=== PATIENT | male | born 1990 | race Caucasian/White ===

== ENCOUNTER 2020-12-12 07:16 | Outpatient (CLI) | payer BC ==
[2020-12-12 07:36] LABS: BASOPHILS % (AUTO) 0.7 %; EOSINOPHILS # (AUTO) 0.4 10^3/uL (0.0-0.7); EOSINOPHILS % (AUTO) 6.7 %; HCT - HEMATOCRIT 46.9 % (42.0-52.0); HGB - HEMOGLOBIN 16.3 g/dL (14.0-18.0); LYMPHOCYTES # (AUTO) 2.5 10^3/uL (1.5-3.5); LYMPHOCYTES % (AUTO) 42.4 %; MEAN CORPUSCULAR HEMOGLOBIN 32.5 pg (27.0-31.0); MEAN CORPUSCULAR HGB CONC 34.8 g/dL (32.0-36.0); MEAN CORPUSCULAR VOLUME 93.4 fL (80.0-94.0); MEAN PLATELET VOLUME 9.8 fL (7.4-11.4); MONOCYTES # (AUTO) 0.5 10^3/uL (0.0-1.0); NEUTROPHILS # (AUTO) 2.4 10^3/uL (1.5-6.6); NEUTROPHILS % (AUTO) 40.7 %; PLT - PLATELET COUNT 207 10^3/uL (130-450); RED BLOOD COUNT 5.02 10^6/uL (4.70-6.10); RED CELL DISTRIBUTION WIDTH 11.9 % (12.0-15.0); WHITE BLOOD COUNT 5.8 x10^3/uL (4.8-10.8)
[2020-12-12 07:55] LABS: ALBUMIN 4.4 g/dL (3.2-5.5); ALBUMIN/GLOBULIN RATIO 1.6 (1.0-2.2); ALKALINE PHOSPHATASE 71 IU/L (42-121); ALT ALANINE AMINOTRANSFERASE 55 IU/L (10-60); AST ASPARTATE AMINOTRANSFERASE 34 IU/L (10-42); BILIRUBIN,TOTAL 0.6 mg/dL (0.2-1.0); BUN - BLOOD UREA NITROGEN 12 mg/dL (6-20); CALCIUM 9.3 mg/dL (8.5-10.3); CARBON DIOXIDE - CO2 26 mmol/L (21-32); CHLORIDE 102 mmol/L (101-111); CHOL/HDL RATIO 3.2 (<5.0); CHOLESTEROL 153 mg/dL; CREATININE 0.8 mg/dL (0.6-1.2); GFR - MDRD 115 (>89); GLUCOSE 108 mg/dL (70-100); HDL CHOLESTEROL 48 mg/dL; LDL CHOLESTEROL,CALCULATED 79 mg/dL; LDL/HDL RATIO 1.6 (<3.6); POTASSIUM 4.3 mmol/L (3.5-5.0); SODIUM 137 mmol/L (135-145); TOTAL PROTEIN 7.1 g/dL (6.7-8.2); TRIGLYCERIDES 129 mg/dL; VLDL CHOLESTEROL 26 mg/dL
[2020-12-13 20:19] LABS: ESTIMATED AVERAGE GLUCOSE 91 mg/dL (70-100); HEMOGLOBIN A1c% 4.8 % (4.27-6.07)
== END 2020-12-12 07:17 | disposition home or self-care (01) ==
LOC: LAB 07:16 → EDSTATUS 08:45
PROVIDERS: ATTEND Internal Medicine
DX: Z13.6 Encounter for screening for cardiovascular disorders (principal); Z79.899 Other long term (current) drug therapy; J45.909 Unspecified asthma, uncomplicated; R73.01 Impaired fasting glucose
CPT/HCPCS: 36415; 80053; 80061; 83036; 83721; 84443; 85025

== ENCOUNTER 2022-08-15 07:03 | Outpatient (CLI) | payer BC ==
[2022-08-15 07:38] LABS: ALBUMIN 4.7 g/dL (3.2-5.5); ALBUMIN/GLOBULIN RATIO 1.7 (1.0-2.2); ALKALINE PHOSPHATASE 65 IU/L (42-121); ALT ALANINE AMINOTRANSFERASE 28 IU/L (10-60); AST ASPARTATE AMINOTRANSFERASE 23 IU/L (10-42); BASOPHILS # (AUTO) 0.1 10^3/uL (0.0-0.1); BASOPHILS % (AUTO) 0.8 %; BILIRUBIN,TOTAL 0.8 mg/dL (0.2-1.0); BUN - BLOOD UREA NITROGEN 11 mg/dL (6-20); CALCIUM 9.5 mg/dL (8.5-10.3); CARBON DIOXIDE - CO2 24 mmol/L (21-32); CHOL/HDL RATIO 3.9 (<5.0); CHOLESTEROL 164 mg/dL; CREATININE 0.9 mg/dL (0.6-1.2); EOSINOPHILS # (AUTO) 0.1 10^3/uL (0.0-0.7); EOSINOPHILS % (AUTO) 2.1 %; GFR - MDRD 99 (>89); GLUCOSE 107 mg/dL (70-100); HCT - HEMATOCRIT 48.3 % (42.0-52.0); HDL CHOLESTEROL 42 mg/dL; HGB - HEMOGLOBIN 17.3 g/dL (14.0-18.0); LDL CHOLESTEROL,CALCULATED 100 mg/dL; LDL/HDL RATIO 2.4 (<3.6); LYMPHOCYTES # (AUTO) 2.7 10^3/uL (1.5-3.5); LYMPHOCYTES % (AUTO) 43.5 %; MEAN CORPUSCULAR HEMOGLOBIN 30.6 pg (27.0-31.0); MEAN CORPUSCULAR HGB CONC 35.8 g/dL (32.0-36.0); MEAN CORPUSCULAR VOLUME 85.5 fL (80.0-94.0); MEAN PLATELET VOLUME 10.6 fL (7.4-11.4); MONOCYTES # (AUTO) 0.6 10^3/uL (0.0-1.0); MONOCYTES % (AUTO) 10.1 %; NEUTROPHILS # (AUTO) 2.7 10^3/uL (1.5-6.6); NEUTROPHILS % (AUTO) 43.3 %; PLT - PLATELET COUNT 267 10^3/uL (130-450); POTASSIUM 4.2 mmol/L (3.5-5.0); RED BLOOD COUNT 5.65 10^6/uL (4.70-6.10); RED CELL DISTRIBUTION WIDTH 12.1 % (12.0-15.0); SODIUM 138 mmol/L (135-145); TOTAL PROTEIN 7.5 g/dL (6.7-8.2); TRIGLYCERIDES 110 mg/dL; VLDL CHOLESTEROL 22 mg/dL; WHITE BLOOD COUNT 6.2 x10^3/uL (4.8-10.8)
[2022-08-15 07:49] LABS: THYROID STIMULATING HORMONE 3.95 uIU/mL (0.34-5.60)
[2022-08-15 13:41] LABS: CHLORIDE 106 mmol/L (101-111)
== END 2022-08-15 07:04 | disposition home or self-care (01) ==
LOC: LAB 07:03
PROVIDERS: ATTEND Physician Assistant
DX: R03.0 Elevated blood-pressure reading, without diagnosis of hypertension (principal)
CPT/HCPCS: 36415; 80053; 80061; 83721; 84443; 85025

== ENCOUNTER 2023-09-01 07:46 | Outpatient (CLI) | payer BC ==
--- NOTE | 2023-09-01 08:15 | CARDIAC PROCEDURE NOTE ---
Stress Test Report Service Date: 09/01/23 Service Time: 08:00 Ordering Provider: Cindi Suresh ARNP Indication for Test: Cardiac risk stratification in patient with recently diagnosed hypertension and concern for palpitations. Significant Medical History: Rajiv is referred for a treadmill stress echocardiogram today, for general cardiac risk stratification in the setting of recent diagnosis of hypertension. His blood pressures have been elevated over the past several months, in spite of lifestyle modifications including loss of approximately 30-40 pounds, decreased alcohol intake and regular walking. He has several family members who began treatment for hypertension in their 30s, some requiring multiple medications. At a clinic visit in early June, where BP was documented at 141/105, he was started on amlodipine 5 mg daily, with some subsequent reduction of blood pressures, though he is often still seeing values in the 140s over high 80s to low 90s. He also is experiencing palpitations, that he describes as forceful heart contractions without lightheadedness, notable especially in the evening. In spite of these concerns he remains active, walking on a regular basis without concern for loss of exertional tolerance, and without chest discomfort or particular awareness of his heartbeat at the time of exercise. Cardiac Risk Factors: Positive for recently diagnosed HTN (as well as strong family history of HTN and stroke); negative for tobacco smoking, hyperlipidemia (fasting lipids in 08/12 included: TChol 164, LDLc 100, HDLc 42, TG 110), diabetes and known family history of CAD. Type of Stress Test: ETT with Echocardiography Procedure: -Exercise Treadmill Test- After signing informed consent, the patient underwent echo imaging at rest and then performed treadmill exercise using a Zak protocol. The patient exercised for 11 minutes 39 seconds and achieved a peak heart rate of 188 (99 percent predicted maximum heart rate for age), and an estimated workload of 13.5 METS. The test was terminated due to fatigue/shortness of breath. Resting heart rate: 80 Peak heart rate: 188 Normal response to exercise. Resting BP: 145/98 Peak BP: 188/101 Hypertensive resting systolic and diastolic BPs with physiologic systolic and abnormal diastolic BP increases with exercise. Room air oxygen saturation during exercise ranged between 96-98%. Rhythm during exercise: Sinus rhythm throughout without ectopy. Symptoms: No report of chest pressure/discomfort/pain. EKG at rest showed normal sinus rhythm, generally normal but with some minimally "scooped" ST segments. EKG at peak stress showed horizontal ST depression of 1.0 mm or greater in leads II, III, aVF, V4-V6, that could meet diagnostic EKG criteria for ischemia, though specificity of the finding is reduced due to minor resting ST abnormalities. In Recovery HR and BP decreased, though remained elevated at 5:00 (HR 111, BP 151/87). Echo imaging, performed at rest and with stress, will be reported separately. IRich MD, was present throughout this treadmill stress study and supervised it in its entirety. Summary: 1) Exercise tolerance was mildly reduced for age and sex as evidenced by BELLA of 15%. 2) Abnormal resting EKG (minor ST scooping). 3) Adequate level of exercise was achieved on this treadmill stress test. 4) Hypertensive at rest but with normal systolic BP response to exercise. 5) ST depression, meeting EKG criteria for ischemia, was seen at peak stress, but with reduced specificity due to minor resting ST segment abnormalities. This response could be related to his HTN. 6) Echo image interpretation reveals normal left ventricular size, wall thickness and systolic function, with appropriate hyperdynamic augmentation of all segments with exercise, indicating no evidence of prior infarct or inducible ischemia. Screening study was notable for apparent moderate right atrial and right ventricular chamber enlargement (with normal RV systolic function), with TR jet velocity of 2.5 m/sec predicting normal estimated pulmonary artery systolic pressure of 25 mmHg, with normal IVC size and inspiratory collapse; there were no apparent structural valve abnormalities. See separate report for more details. Conclusions and Recommendations: 1) Overall these are reassuring treadmill stress echocardiogram results, with exercise time that was near average for age, appropriate hemodynamic response (though with resting BP elevation) and no symptom or echocardiographic evidence of inducible ischemia. There were minor resting ST abnormalities that reduces the specificity of the observed ST segment depression for ischemia. 2) Fortunately, the echocardiogram response to exercise appears normal and there do not appear to be sequelae of hypertension present, such as LVH. 3) We discussed his apparent right atrial enlargement and the possibility that he could have a PFO or less likely, atrial septal defect. It would be reasonable for him to undergo a full diagnostic echocardiogram with bubble study in the future, to assess for these possibilities. 4) His BP control appears improved on amlodipine, but he may benefit from either a dose increase, or perhaps even better, the addition of an angiotensin receptor tevin (ARB) such as losartan, as a second agent. The latter could reduce the likelihood of his developing amlodipine-related ankle edema, further improve blood pressure control and have favorable effects for his overall endothelial f unction.
== END 2023-09-01 07:47 | disposition home or self-care (01) ==
LOC: DI 07:46
PROVIDERS: ATTEND Nurse Practitioner
DX: I10 Essential (primary) hypertension (principal); R00.2 Palpitations; I51.7 Cardiomegaly
CPT/HCPCS: 93350

== ENCOUNTER 2023-09-02 08:14 | Outpatient (CLI) | payer BC ==
[2023-09-02 08:49] LABS: BASOPHILS % (AUTO) 0.7 %; EOSINOPHILS # (AUTO) 0.2 10^3/uL (0.0-0.7); EOSINOPHILS % (AUTO) 3.4 %; HGB - HEMOGLOBIN 16.6 g/dL (14.0-18.0); LYMPHOCYTES # (AUTO) 2.2 10^3/uL (1.5-3.5); LYMPHOCYTES % (AUTO) 38.8 %; MEAN CORPUSCULAR HEMOGLOBIN 33.3 pg (27.0-31.0); MEAN CORPUSCULAR HGB CONC 36.9 g/dL (32.0-36.0); MEAN CORPUSCULAR VOLUME 90.2 fL (80.0-94.0); MEAN PLATELET VOLUME 10.1 fL (7.4-11.4); MONOCYTES # (AUTO) 0.6 10^3/uL (0.0-1.0); MONOCYTES % (AUTO) 10.4 %; NEUTROPHILS # (AUTO) 2.6 10^3/uL (1.5-6.6); NEUTROPHILS % (AUTO) 46.3 %; PLT - PLATELET COUNT 254 10^3/uL (130-450); RED BLOOD COUNT 4.99 10^6/uL (4.70-6.10); WHITE BLOOD COUNT 5.6 x10^3/uL (4.8-10.8)
[2023-09-02 09:03] LABS: ALBUMIN 4.6 g/dL (3.2-5.5); ALBUMIN/GLOBULIN RATIO 2.3 (1.0-2.2); ALKALINE PHOSPHATASE 60 IU/L (42-121); ALT ALANINE AMINOTRANSFERASE 20 IU/L (10-60); AST ASPARTATE AMINOTRANSFERASE 18 IU/L (10-42); BILIRUBIN,TOTAL 0.6 mg/dL (0.2-1.0); BUN - BLOOD UREA NITROGEN 12 mg/dL (6-20); CALCIUM 9.2 mg/dL (8.5-10.3); CARBON DIOXIDE - CO2 26 mmol/L (21-32); CHLORIDE 106 mmol/L (101-111); CHOL/HDL RATIO 2.5 (<5.0); CHOLESTEROL 133 mg/dL; CREATININE 0.8 mg/dL (0.6-1.3); GFR - MDRD 113 (>89); GLUCOSE 99 mg/dL (74-104); HDL CHOLESTEROL 53 mg/dL; LDL CHOLESTEROL,CALCULATED 68 mg/dL; LDL/HDL RATIO 1.3 (<3.6); POTASSIUM 3.9 mmol/L (3.5-4.5); SODIUM 137 mmol/L (135-145); TOTAL PROTEIN 6.6 g/dL (6.4-8.9); TRIGLYCERIDES 61 mg/dL (48-352); VLDL CHOLESTEROL 12 mg/dL
[2023-09-02 09:19] LABS: THYROID STIMULATING HORMONE 2.57 uIU/mL (0.34-5.60)
== END 2023-09-02 08:15 | disposition home or self-care (01) ==
LOC: LAB 08:14
PROVIDERS: ATTEND Nurse Practitioner
DX: I10 Essential (primary) hypertension (principal); Z13.220 Encounter for screening for lipoid disorders; R00.2 Palpitations
CPT/HCPCS: 36415; 80053; 80061; 83721; 84439; 84443; 85025

== ENCOUNTER 2023-09-15 14:09 | Outpatient (CLI) | payer BC ==
[2023-09-15 14:49] LABS: CALCIUM 9.9 mg/dL (8.5-10.3); CREATININE 0.8 mg/dL (0.6-1.3); POTASSIUM 4.2 mmol/L (3.5-4.5)
== END 2023-09-15 14:10 | disposition home or self-care (01) ==
LOC: LAB 14:09
PROVIDERS: ATTEND Physician Assistant
DX: I10 Essential (primary) hypertension (principal)
CPT/HCPCS: 36415; 80048

== ENCOUNTER 2023-10-29 08:01 | Outpatient (CLI) | payer BC | END 2023-10-29 08:02 | disposition home or self-care (01) | LOC: DI 08:01 | PROVIDERS: ATTEND Physician Assistant | DX: I51.7 Cardiomegaly (principal) | CPT/HCPCS: 93307 ==